=== PATIENT | female | born 1950 | race African-American/Black ===

== ENCOUNTER 2017-03-09 11:31 | Observation (INO) | payer MEDICARE, MEDICAID ==
[~2017-03-09] VITALS: Ht 167.6 cm; Wt 52.2 kg
[~2017-03-09 11:31] MED LIST: AMLO10TA80 PO; ATOR20TA65 PO; CARV6.2548 PO; CETI10TA6 PO; FERR-43 PO; FERR-63 PO; FURO40TA5 PO; METH5TAB68 PO; MSCON30 PO; POTA20TA82 PO; SILD20TA PO; SPIR25TA4 PO; WARF3TAB27 PO; WARF5TAB73 PO
[2017-03-09] MEDS ORDERED: IOHEXOL-300 100 ML BOTTLE ONE (11:34)
[2017-03-09] MEDS ORDERED: SODIUM CHLORIDE 0.9% 10ML VIAL ONE (11:34)
[2017-03-09] MEDS ORDERED: PANTOPRAZOLE SODIUM 40 MG/VIAL IV ONE (12:30)
[2017-03-09 13:13] LABS: BASOPHILS % 0.7 % (0.0-2.0); EOSINOPHILS % 0.1 % (0.0-5.0); HEMATOCRIT. 36.9 % (36.0-48.0); LYMPHOCYTES % 8.4 % (20.0-50.0); MEAN CORPUSCULAR HGB CONC 32.5 g/dL (31.0-37.0); MEAN CORPUSCULAR VOLUME 95.4 fL (81.0-99.0); MEAN PLATELET VOLUME 7.4 fl (7.4-10.4); MONOCYTES % 4.3 % (2.0-8.0); NEUTROPHILS % 86.5 % (40.0-76.0); PLATELET 160 x1000/uL (130-400); RED BLOOD CELL COUNT 3.87 mill/uL (4.2-5.4); RED CELL DISTRIBUTION WIDTH 26.2 % (11.6-14.6); WHITE BLOOD COUNT 16.6 x1000/uL (4.5-11.0)
[2017-03-09 13:18] LABS: INR 2.7
[2017-03-09 13:20] LABS: ADD RBC MORPHOLOGY YES; DIFFERENTIAL COMMENT 1
[2017-03-09 13:21] LABS: ALBUMIN 3.9 g/dL (3.4-5.0); ANION GAP 15; CALCIUM 9.8 mg/dL (8.5-10.1); CARBON DIOXIDE 21 mEq/L (21-32); CHLORIDE 108 mEq/L (98-107); INDEX HEMOLYSI 1 (1-3); INDEX ICTERIC 1 (1-4); INDEX LIPEMIC 1 (1-3); LIPASE 208 IU/L (73-393); UREA NITROGEN BLOOD 36 mg/dL (7-21)
[2017-03-09 13:25] LABS: ALANINE AMINOTRANSFERASE 20 IU/L (13-61); eGFR 54 mL/min (>60)
[2017-03-09 13:49] LABS: ANISOCYTOSIS 2+; PLATELET ESTIMATE NORMAL
[2017-03-09 14:30] LABS: CLARITY URINE CLEAR (CLEAR); COLOR URINE YELLOW (YELLOW); GLUCOSE URINE NEGATIVE (NEGATIVE); KETONES URINE NEGATIVE (NEGATIVE); LEUKOCYTE ESTERASE URINE NEGATIVE (NEGATIVE); NITRITE URINE NEGATIVE (NEGATIVE); OCCULT BLOOD URINE TRACE (NEGATIVE); PROTEIN URINE TRACE (NEGATIVE); SPECIFIC GRAVITY URINE 1.014 (1.005-1.030); UROBILINOGEN URINE 0.2 E.U./dL (0.2-1.0)
[2017-03-09] MEDS ORDERED: ONDANSETRON HCL 4MG/2ML VIAL IV ONE ×2 (14:30→18:30)
[2017-03-09] MEDS ORDERED: MORPHINE SULFATE 4 MG/ML CPJ (NOT FOR IM USE) IV ONE ×2 (14:30→18:30)
[2017-03-09 14:47] LABS: RBC URINE 0-2 /hpf (0-2); SQUAMOUS EPITHELIAL CELL URINE RARE /lpf (RARE/1+); WBC URINE NONE SEEN /hpf (0-2)
[2017-03-09 14:48] LABS: HYALINE CASTS URINE 0-5 /lpf
[2017-03-09 14:49] LABS: BACTERIA URINE TRACE
[2017-03-09 20:00] VITALS: BP 114/66
[2017-03-09 22:00] VITALS: BP 114/66
[2017-03-09 22:28] VITALS: BP 114/66
[2017-03-10] VITALS: BP 112/66
[2017-03-10] MEDS ORDERED: ATROVASTATIN (01:21)
[2017-03-10] MEDS: MORPHINE SULFATE 30MG TABLET SR PO PRN ×3 (03:01→22:54)
[2017-03-10 04:00] VITALS: BP 118/64
[2017-03-10 05:58] LABS: INR 2.5; PROTHROMBIN TIME 25.7 sec
[2017-03-10] MEDS ORDERED: FERROUS SULFATE 325MG TABLET PO SCH (06:00)
[2017-03-10 06:21] LABS: HEMOGLOBIN 11.8 g/dL (12.0-16.0); MEAN CORPUSCULAR HEMOGLOBIN 31.7 pg (28.0-32.0); MEAN CORPUSCULAR HGB CONC 32.8 g/dL (31.0-37.0); MEAN CORPUSCULAR VOLUME 96.5 fL (81.0-99.0); PLATELET 160 x1000/uL (130-400); RED BLOOD CELL COUNT 3.73 mill/uL (4.2-5.4); RED CELL DISTRIBUTION WIDTH 25.7 % (11.6-14.6); WHITE BLOOD COUNT 13.9 x1000/uL (4.5-11.0)
[2017-03-10 07:02] LABS: ALBUMIN 3.9 g/dL (3.4-5.0)
[2017-03-10 07:08] LABS: BILIRUBIN DIRECT 0.3 mg/dL (0.0-0.2)
[2017-03-10] MEDS ORDERED: MORPHINE SULFATE 30MG TABLET SR PO SCH (09:00)
[2017-03-10] MEDS: AMLODIPINE 10MG TABLET PO SCH (09:00)
[2017-03-10] MEDS: CARVEDILOL 6.25 MG TABLET PO SCH ×3 (09:00→22:04)
[2017-03-10] MEDS: ATORVASTATIN CALCIUM 20MG TABLET PO SCH (09:07)
[2017-03-10] MEDS: METHIMAZOLE 5MG TABLET PO SCH (09:08)
[2017-03-10] MEDS: FERROUS SULFATE 325MG TABLET PO SCH (09:08)
[2017-03-10] MEDS: ONDANSETRON HCL 4MG/2ML VIAL IV PRN ×2 (09:35→22:12)
[2017-03-10 12:00] VITALS: BP 100/59
[2017-03-10] MEDS: SILDENAFIL CITRATE 20MG TABLET PO SCH ×2 (14:24→21:48)
[2017-03-10 16:00] VITALS: BP 101/52
[2017-03-10 20:00] VITALS: BP 101/50
[2017-03-10] MEDS ORDERED: WARFARIN SODIUM 5MG TABLET PO SCH (21:00)
[2017-03-11] VITALS: BP 100/58
[2017-03-11 04:00] VITALS: BP 99/64
[2017-03-11 05:42] LABS: BASOPHILS % 0.5 % (0.0-2.0); EOSINOPHILS % 1.4 % (0.0-5.0); HEMATOCRIT. 33.9 % (36.0-48.0); HEMOGLOBIN. 11.2 g/dL (12.0-16.0); LYMPHOCYTES % 19.5 % (20.0-50.0); MEAN CORPUSCULAR HEMOGLOBIN 31.7 pg (28.0-32.0); MEAN CORPUSCULAR HGB CONC 32.9 g/dL (31.0-37.0); MEAN CORPUSCULAR VOLUME 96.4 fL (81.0-99.0); MEAN PLATELET VOLUME 8.4 fl (7.4-10.4); MONOCYTES % 5.1 % (2.0-8.0); NEUTROPHILS % 73.5 % (40.0-76.0); PLATELET 144 x1000/uL (130-400); RED BLOOD CELL COUNT 3.52 mill/uL (4.2-5.4); RED CELL DISTRIBUTION WIDTH 24.6 % (11.6-14.6); WHITE BLOOD COUNT 10.1 x1000/uL (4.5-11.0)
[2017-03-11 05:55] LABS: DIFFERENTIAL COMMENT 1
[2017-03-11 05:56] LABS: ADD RBC MORPHOLOGY YES
[2017-03-11] MEDS: SILDENAFIL CITRATE 20MG TABLET PO SCH ×2 (06:00→13:56)
[2017-03-11 06:29] LABS: CALCIUM 8.8 mg/dL (8.5-10.1)
[2017-03-11 08:00] VITALS: BP 103/58
[2017-03-11] MEDS: AMLODIPINE 10MG TABLET PO SCH (09:00)
[2017-03-11] MEDS: METHIMAZOLE 5MG TABLET PO SCH (09:09)
[2017-03-11] MEDS: ATORVASTATIN CALCIUM 20MG TABLET PO SCH (09:09)
[2017-03-11] MEDS: ONDANSETRON HCL 4MG/2ML VIAL IV PRN (09:09)
[2017-03-11] MEDS: FERROUS SULFATE 325MG TABLET PO SCH (09:09)
[2017-03-11 10:34] LABS: ANISOCYTOSIS 1+; PLATELET ESTIMATE NORMAL
[2017-03-11 12:00] VITALS: BP 103/57
[2017-03-11] MEDS ORDERED: SODIUM CHLORIDE 0.9% 1,000 ML IV NR (13:45)
[2017-03-11] MEDS ORDERED: SODIUM CHLORIDE 0.9% 250 ML IV NR (14:00)
[2017-03-11 16:00] VITALS: BP 94/48
[2017-03-11 16:45] LABS: INR 2.3; PROTHROMBIN TIME 23.8 sec
[2017-03-11] MEDS ORDERED: WARFARIN SODIUM 5MG TABLET PO SCH (18:00)
== END 2017-03-11 18:30 | disposition home or self-care (01) ==
LOC: ER 11:39 → INTOOBSV 16:17 → 6WST 16:17
PROVIDERS: ADMIT Specialist; ATTEND Specialist
DX: R11.2 Nausea with vomiting, unspecified (principal); R10.9 Unspecified abdominal pain; K92.1 Melena; R19.7 Diarrhea, unspecified; I48.0 Paroxysmal atrial fibrillation; J44.9 Chronic obstructive pulmonary disease, unspecified; I27.2 Other secondary pulmonary hypertension; I50.32 Chronic diastolic (congestive) heart failure; I10 Essential (primary) hypertension; N28.9 Disorder of kidney and ureter, unspecified; E05.90 Thyrotoxicosis, unspecified without thyrotoxic crisis or storm; D50.9 Iron deficiency anemia, unspecified; Z98.890 Other specified postprocedural states; Z90.49 Acquired absence of other specified parts of digestive tract; Z95.2 Presence of prosthetic heart valve; Z79.01 Long term (current) use of anticoagulants
CPT/HCPCS: 36415; 74177; 80048; 80053; 80076; 81001; 83690; 85025; 85027; 85610; 86850; 86870; 86900; 86901; 86920; 96374; 96375; 96376; 99285; A4216; C9113; G0378; J2270; J2405; J7050; Q9967

== ENCOUNTER → 2017-05-23 | Outpatient (CLI) | payer MEDICARE, MEDICAID ==
[~2017-05-23] MED LIST changes: -FERR-63 PO; -WARF3TAB27 PO; -WARF5TAB73 PO
== END | disposition home or self-care (01) ==
LOC: RAD 15:21
PROVIDERS: ATTEND Specialist
DX: J90 Pleural effusion, not elsewhere classified (principal); J44.9 Chronic obstructive pulmonary disease, unspecified; Z95.2 Presence of prosthetic heart valve
CPT/HCPCS: 71020

== ENCOUNTER 2017-05-30 10:43 | Inpatient (IN) | payer MEDICARE, MEDICAID ==
[~2017-05-30] VITALS: Ht 167.6 cm; Wt 53.2 kg
[2017-05-30] MEDS ORDERED: ALBUTEROL (0.083%) 2.5MG/3ML NEB HHN STA (11:01)
[2017-05-30] MEDS ORDERED: IPRATROPIUM BROMIDE (0.02%) 0.5MG/2.5ML NEB HHN STA (11:01)
[2017-05-30 11:21] LABS: BASOPHILS % 0.6 % (0.0-2.0); EOSINOPHILS % 1.7 % (0.0-5.0); HEMATOCRIT. 32.6 % (36.0-48.0); HEMOGLOBIN. 10.5 g/dL (12.0-16.0); LYMPHOCYTES % 7.3 % (20.0-50.0); MEAN CORPUSCULAR HEMOGLOBIN 30.1 pg (28.0-32.0); MEAN CORPUSCULAR VOLUME 93.2 fL (81.0-99.0); MEAN PLATELET VOLUME 7.3 fl (7.4-10.4); MONOCYTES % 3.5 % (2.0-8.0); NEUTROPHILS % 86.9 % (40.0-76.0); PLATELET 236 x1000/uL (130-400); RED CELL DISTRIBUTION WIDTH 16.9 % (11.6-14.6)
[2017-05-30 11:31] LABS: CARBON DIOXIDE 14 mEq/L (21-32); CHLORIDE 108 mEq/L (98-107); PROTHROMBIN TIME 85.2 sec
[2017-05-30 11:32] LABS: BG BASE EXCESS -10.5 mmol/L (-2.0-2.0); BG CARBOXYHEMOGLOBIN 0.6 % (0.5-1.5); BG DEOXYHEMOGLOBIN 27.1 % (0.0-5.0); BG FRACTION INSPIRED OXYGEN 30; BG METHEMOGLOBIN 0.2 % (0.0-1.5); BG OXYGEN SATURATION 72.7 % (92.0-98.5); BG OXYHEMOGLOBIN 72.1 % (94.0-97.0); BG PCO2 23.3 mmHg (35.0-45.0); BG PH 7.366 (7.350-7.450); BG PO2 44.6 mmHg (75.0-100.0); BG SAMPLE SITE RIGHT BRACHIAL; BG TOTAL HEMOGLOBIN 11.8 g/dL (12.0-18.0); BG VENT MODE NASAL CANNULA
[2017-05-30 11:35] LABS: INR 8.2
[2017-05-30 11:38] LABS: TROPONIN I 0.04 ng/mL (0.00-0.04)
[2017-05-30] MEDS ORDERED: FUROSEMIDE 40MG/4ML VIAL IVP NR (14:00)
[2017-05-30] MEDS ORDERED: PHYTONADIONE 10MG/ML AMP SUBCUT NR (14:00)
[2017-05-30] MEDS ORDERED: ONDANSETRON HCL 4MG/2ML VIAL IV PRN (14:00)
[2017-05-30] MEDS ORDERED: IPRATROPIUM/ALBUTEROL 0.5-3(2.5)MG/3ML NEB INH PRN (14:00)
[2017-05-30] MEDS ORDERED: DOCUSATE SODIUM 100MG CAPSULE PO PRN (14:00)
[2017-05-30 14:06] LABS: BG CARBOXYHEMOGLOBIN 0.6 % (0.5-1.5); BG DEOXYHEMOGLOBIN 0.2 % (0.0-5.0); BG FRACTION INSPIRED OXYGEN 100; BG HCO3 ACT 12.2 mmol/L (22.0-26.0); BG METHEMOGLOBIN 0.4 % (0.0-1.5); BG OXYGEN SATURATION 99.8 % (92.0-98.5); BG OXYHEMOGLOBIN 98.8 % (94.0-97.0); BG PCO2 23.5 mmHg (35.0-45.0); BG PH 7.332 (7.350-7.450); BG PO2 313.5 mmHg (75.0-100.0); BG SAMPLE SITE RIGHT BRACHIAL; BG TOTAL HEMOGLOBIN 11.4 g/dL (12.0-18.0); BG VENT MODE MASK - BIPAP; BG VENT RATE 14 set
[2017-05-30 15:09] LABS: TOTAL IRON BINDING CAPACITY 232 ug/dL (250-450)
[2017-05-30] MEDS: FUROSEMIDE 40MG/4ML VIAL IV SCH (17:00)
[2017-05-30 17:10] VITALS: BP 138/77
[2017-05-30 17:12] VITALS: BP 138/77
[2017-05-30 17:14] LABS: *AMPHETAMINES SCREEN URINE NEGATIVE (NEGATIVE); *BARBITURATES SCREEN URINE NEGATIVE (NEGATIVE); *BENZODIAZEPINES SCREEN URINE NEGATIVE (NEGATIVE); *COCAINE SCREEN URINE NEGATIVE (NEGATIVE); CANNABINOID URINE SCREEN NEGATIVE (NEGATIVE); METHADONE URINE SCREEN NEGATIVE (NEGATIVE); OPIATES URINE SCREEN PRESUMTIVE POSITIVE (NEGATIVE); PHENCYCLIDINE URINE SCREEN NEGATIVE (NEGATIVE)
[2017-05-30] MEDS: METHYLPREDNISOLONE SOD SUCC 125 MG/2 ML VIAL IV SCH (17:42)
[2017-05-30] MEDS: CARVEDILOL 6.25 MG TABLET PO SCH (17:42)
[2017-05-30 18:00] VITALS: BP 151/80
[2017-05-30 19:01] LABS: HEMATOCRIT 34.7 % (36.0-48.0); HEMOGLOBIN 11.1 g/dL (12.0-16.0)
[2017-05-30 20:00] VITALS: BP 117/71
[2017-05-30] MEDS: AMLODIPINE 5MG TABLET PO SCH (20:31)
[2017-05-30] MEDS: ATORVASTATIN CALCIUM 20MG TABLET PO SCH (20:31)
[2017-05-30] MEDS: SILDENAFIL CITRATE 20MG TABLET PO SCH (20:32)
[2017-05-30] MEDS: IPRATROPIUM/ALBUTEROL 0.5-3(2.5)MG/3ML NEB INH SCH (20:51)
[2017-05-30] MEDS: ZOLPIDEM TARTRATE 5MG TABLET PO PRN (21:46)
[2017-05-30 22:00] VITALS: BP 116/68
[2017-05-31] VITALS (11 sets, daily range): BP systolic 106–125; BP diastolic 55–73
[2017-05-31] MEDS: METHYLPREDNISOLONE SOD SUCC 125 MG/2 ML VIAL IV SCH ×3 (02:02→17:13)
[2017-05-31] MEDS: IPRATROPIUM/ALBUTEROL 0.5-3(2.5)MG/3ML NEB INH SCH ×4 (02:10→21:09)
[2017-05-31] MEDS: OMEPRAZOLE 20MG CAPSULE EXTENDED RELEASE PO SCH (06:06)
[2017-05-31] MEDS: SILDENAFIL CITRATE 20MG TABLET PO SCH ×3 (06:06→21:10)
[2017-05-31 06:17] LABS: INR 3.6; PROTHROMBIN TIME 37.7 sec
[2017-05-31 06:45] LABS: HEMATOCRIT. 31.3 % (36.0-48.0); HEMOGLOBIN. 10.2 g/dL (12.0-16.0); MEAN CORPUSCULAR HEMOGLOBIN 30.3 pg (28.0-32.0); MEAN CORPUSCULAR VOLUME 92.9 fL (81.0-99.0); MEAN PLATELET VOLUME 8.3 fl (7.4-10.4); PLATELET 196 x1000/uL (130-400); RED BLOOD CELL COUNT 3.36 mill/uL (4.2-5.4); RED CELL DISTRIBUTION WIDTH 16.3 % (11.6-14.6)
[2017-05-31 07:00] LABS: AMMONIA 41 uMol/L (<32)
[2017-05-31 07:43] LABS: PHOSPHORUS 4.3 mg/dL (2.5-4.9)
[2017-05-31] MEDS: FUROSEMIDE 40MG/4ML VIAL IV SCH (08:27)
[2017-05-31] MEDS: CARVEDILOL 6.25 MG TABLET PO SCH ×2 (08:28→17:00)
[2017-05-31] MEDS: METHIMAZOLE 5MG TABLET PO SCH (08:28)
[2017-05-31] MEDS: AMLODIPINE 5MG TABLET PO SCH ×2 (08:28→21:09)
[2017-05-31] MEDS ORDERED: LACTULOSE 20G/30ML UDC PO SCH (12:00)
[2017-05-31] MEDS: FERROUS SULFATE 325MG TABLET PO SCH ×2 (12:24→17:13)
[2017-05-31] MEDS ORDERED: LACTULOSE 20G/30ML UDC PO PRN (13:30)
[2017-05-31 20:31] LABS: PLATELET ESTIMATE NORMAL
[2017-05-31] MEDS: ATORVASTATIN CALCIUM 20MG TABLET PO SCH (21:10)
[2017-06-01] VITALS (18 sets, daily range): BP systolic 100–131; BP diastolic 49–72
[2017-06-01] MEDS: IPRATROPIUM/ALBUTEROL 0.5-3(2.5)MG/3ML NEB INH SCH ×4 (02:12→20:04)
[2017-06-01] MEDS: METHYLPREDNISOLONE SOD SUCC 125 MG/2 ML VIAL IV SCH ×2 (02:30→09:24)
[2017-06-01] MEDS: OMEPRAZOLE 20MG CAPSULE EXTENDED RELEASE PO SCH (05:58)
[2017-06-01] MEDS: SILDENAFIL CITRATE 20MG TABLET PO SCH ×3 (06:00→21:26)
[2017-06-01 06:39] LABS: INR 1.8; PROTHROMBIN TIME 18.4 sec
[2017-06-01 06:43] LABS: HEMATOCRIT. 32.2 % (36.0-48.0); HEMOGLOBIN. 10.4 g/dL (12.0-16.0); MEAN CORPUSCULAR HEMOGLOBIN 29.8 pg (28.0-32.0); MEAN CORPUSCULAR VOLUME 92.1 fL (81.0-99.0); MEAN PLATELET VOLUME 7.5 fl (7.4-10.4); PLATELET 211 x1000/uL (130-400); RED CELL DISTRIBUTION WIDTH 16.4 % (11.6-14.6)
[2017-06-01] MEDS: FERROUS SULFATE 325MG TABLET PO SCH ×3 (09:21→17:14)
[2017-06-01] MEDS: METHIMAZOLE 5MG TABLET PO SCH (09:21)
[2017-06-01] MEDS: FUROSEMIDE 40MG/4ML VIAL IV SCH (09:21)
[2017-06-01] MEDS: AMLODIPINE 5MG TABLET PO SCH ×2 (09:22→20:01)
[2017-06-01] MEDS: CARVEDILOL 6.25 MG TABLET PO SCH ×2 (09:22→17:14)
[2017-06-01 15:46] LABS: PLATELET ESTIMATE NORMAL
[2017-06-01] MEDS: METHYLPREDNISOLONE SOD SUCC 40 MG/ML VIAL IV SCH (17:12)
[2017-06-01] MEDS: LORAZEPAM 0.5MG TABLET PO PRN (17:14)
[2017-06-01] MEDS: ATORVASTATIN CALCIUM 20MG TABLET PO SCH (20:01)
[2017-06-01] MEDS: ZOLPIDEM TARTRATE 5MG TABLET PO PRN (22:16)
[2017-06-02] VITALS (11 sets, daily range): BP systolic 97–132; BP diastolic 52–92
[2017-06-02] MEDS: METHYLPREDNISOLONE SOD SUCC 40 MG/ML VIAL IV SCH ×3 (01:09→20:42)
[2017-06-02] MEDS: IPRATROPIUM/ALBUTEROL 0.5-3(2.5)MG/3ML NEB INH SCH ×3 (02:20→21:13)
[2017-06-02] MEDS: SILDENAFIL CITRATE 20MG TABLET PO SCH ×3 (05:41→21:01)
[2017-06-02] MEDS: FERROUS SULFATE 325MG TABLET PO SCH ×3 (07:02→18:20)
[2017-06-02 07:20] LABS: INR 1.4; PROTHROMBIN TIME 14.7 sec
[2017-06-02 09:06] LABS: FOLICLE STIMULATING HORMONE 15.1 mIU/mL (.); PROLACTIN 13.9 ng/mL (4.8-23.3)
[2017-06-02] MEDS: FAMOTIDINE 20MG TABLET PO SCH (10:00)
[2017-06-02] MEDS: FUROSEMIDE 40MG/4ML VIAL IV SCH (10:01)
[2017-06-02] MEDS: METHIMAZOLE 5MG TABLET PO SCH (10:01)
[2017-06-02] MEDS: AMLODIPINE 5MG TABLET PO SCH ×2 (10:02→20:50)
[2017-06-02] MEDS: CARVEDILOL 6.25 MG TABLET PO SCH ×2 (10:02→18:21)
[2017-06-02 13:07] LABS: A/G RATIO 0.9 (0.7-1.7); ALBUMIN 3.4 g/dL (2.9-4.4); ALPHA-1-GLOBULIN 0.4 g/dL (0.0-0.4); ALPHA-2-GLOBULIN 0.7 g/dL (0.4-1.0); BETA GLOBULIN 1.3 g/dL (0.7-1.3); GAMMA GLOBULINS 1.4 g/dL (0.4-1.8); GLOBULIN TOTAL 3.8 g/dL (2.2-3.9); M-SPIKE Not Observed g/dL (Not Observed); TOTAL PROTEIN SERUM 7.2 g/dL (6.0-8.5)
[2017-06-02] MEDS: ATORVASTATIN CALCIUM 20MG TABLET PO SCH (20:41)
[2017-06-02] MEDS: ZOLPIDEM TARTRATE 5MG TABLET PO PRN (20:56)
[2017-06-02] MEDS: LORAZEPAM 0.5MG TABLET PO PRN (23:20)
[2017-06-03] VITALS (13 sets, daily range): BP systolic 99–139; BP diastolic 49–88
[2017-06-03] MEDS: IPRATROPIUM/ALBUTEROL 0.5-3(2.5)MG/3ML NEB INH SCH ×4 (01:59→20:12)
[2017-06-03] MEDS: FERROUS SULFATE 325MG TABLET PO SCH ×3 (06:18→16:57)
[2017-06-03] MEDS: SILDENAFIL CITRATE 20MG TABLET PO SCH ×3 (06:18→21:03)
[2017-06-03 06:30] LABS: INR 1.3; PROTHROMBIN TIME 13.4 sec
[2017-06-03 06:40] LABS: HEMATOCRIT. 32.7 % (36.0-48.0); HEMOGLOBIN. 10.6 g/dL (12.0-16.0); MEAN CORPUSCULAR HEMOGLOBIN 29.7 pg (28.0-32.0); MEAN CORPUSCULAR VOLUME 91.9 fL (81.0-99.0); MEAN PLATELET VOLUME 8.1 fl (7.4-10.4); PLATELET 222 x1000/uL (130-400); RED BLOOD CELL COUNT 3.55 mill/uL (4.2-5.4); RED CELL DISTRIBUTION WIDTH 17.1 % (11.6-14.6)
[2017-06-03] MEDS: METHIMAZOLE 5MG TABLET PO SCH (08:11)
[2017-06-03] MEDS: METHYLPREDNISOLONE SOD SUCC 40 MG/ML VIAL IV SCH ×2 (08:11→20:55)
[2017-06-03] MEDS: AMLODIPINE 5MG TABLET PO SCH ×2 (08:12→20:55)
[2017-06-03] MEDS: FAMOTIDINE 20MG TABLET PO SCH (08:12)
[2017-06-03] MEDS: CARVEDILOL 6.25 MG TABLET PO SCH ×2 (08:12→16:57)
[2017-06-03] MEDS: LORAZEPAM 0.5MG TABLET PO PRN ×3 (08:21→22:19)
[2017-06-03 16:15] LABS: PLATELET ESTIMATE NORMAL
[2017-06-03] MEDS ORDERED: WARFARIN SODIUM 7.5MG TABLET PO SCH (18:00)
[2017-06-03] MEDS: ATORVASTATIN CALCIUM 20MG TABLET PO SCH (20:55)
[2017-06-03] MEDS: ZOLPIDEM TARTRATE 5MG TABLET PO PRN ×2 (20:59→21:03)
[2017-06-04] VITALS (14 sets, daily range): BP systolic 106–141; BP diastolic 48–91
[2017-06-04] MEDS: IPRATROPIUM/ALBUTEROL 0.5-3(2.5)MG/3ML NEB INH SCH ×4 (01:48→20:33)
[2017-06-04] MEDS: SILDENAFIL CITRATE 20MG TABLET PO SCH ×3 (06:33→21:42)
[2017-06-04 07:07] LABS: HEMATOCRIT. 35.1 % (36.0-48.0); HEMOGLOBIN. 11.5 g/dL (12.0-16.0); MEAN CORPUSCULAR HEMOGLOBIN 29.9 pg (28.0-32.0); MEAN CORPUSCULAR VOLUME 90.9 fL (81.0-99.0); MEAN PLATELET VOLUME 7.6 fl (7.4-10.4); PLATELET 227 x1000/uL (130-400); RED BLOOD CELL COUNT 3.86 mill/uL (4.2-5.4)
[2017-06-04 07:46] LABS: INR 1.4; PROTHROMBIN TIME 14.4 sec
[2017-06-04] MEDS: FERROUS SULFATE 325MG TABLET PO SCH ×2 (09:35→18:30)
[2017-06-04] MEDS: METHYLPREDNISOLONE SOD SUCC 40 MG/ML VIAL IV SCH ×2 (09:35→21:43)
[2017-06-04] MEDS: CARVEDILOL 6.25 MG TABLET PO SCH ×2 (09:36→18:31)
[2017-06-04] MEDS: METHIMAZOLE 5MG TABLET PO SCH (09:37)
[2017-06-04] MEDS: FAMOTIDINE 20MG TABLET PO SCH (09:37)
[2017-06-04] MEDS: AMLODIPINE 5MG TABLET PO SCH ×2 (09:41→21:42)
[2017-06-04 11:26] LABS: PLATELET ESTIMATE NORMAL
[2017-06-04] MEDS: LORAZEPAM 0.5MG TABLET PO PRN (15:31)
[2017-06-04] MEDS ORDERED: WARFARIN SODIUM 7.5MG TABLET PO NR (18:00)
[2017-06-04] MEDS: ATORVASTATIN CALCIUM 20MG TABLET PO SCH (21:42)
[2017-06-05] VITALS (11 sets, daily range): BP systolic 113–152; BP diastolic 42–77
[2017-06-05] MEDS: IPRATROPIUM/ALBUTEROL 0.5-3(2.5)MG/3ML NEB INH SCH ×4 (02:21→20:51)
[2017-06-05] MEDS: SILDENAFIL CITRATE 20MG TABLET PO SCH ×3 (05:38→21:20)
[2017-06-05] MEDS: FERROUS SULFATE 325MG TABLET PO SCH ×3 (06:47→17:40)
[2017-06-05 07:01] LABS: INR 1.8; PROTHROMBIN TIME 18.3 sec
[2017-06-05] MEDS: METHYLPREDNISOLONE SOD SUCC 40 MG/ML VIAL IV SCH (09:35)
[2017-06-05] MEDS: METHIMAZOLE 5MG TABLET PO SCH (09:35)
[2017-06-05] MEDS: FAMOTIDINE 20MG TABLET PO SCH (09:36)
[2017-06-05] MEDS: AMLODIPINE 5MG TABLET PO SCH ×2 (09:36→21:20)
[2017-06-05] MEDS: CARVEDILOL 6.25 MG TABLET PO SCH ×2 (09:36→17:40)
[2017-06-05] MEDS ORDERED: HYDROCODONE/ACETAMINOPHEN 5/325MG TABLET PO PRN (10:00)
[2017-06-05] MEDS ORDERED: ACETAMINOPHEN 325MG TABLET PO PRN (10:00)
[2017-06-05] MEDS: TRAMADOL 50MG TABLET PO PRN (10:02)
[2017-06-05] MEDS ORDERED: WARFARIN SODIUM 3MG TABLET PO SCH (18:00)
[2017-06-05] MEDS: ATORVASTATIN CALCIUM 20MG TABLET PO SCH (21:20)
[2017-06-05] MEDS: LORAZEPAM 0.5MG TABLET PO PRN (21:21)
[2017-06-06] VITALS (9 sets, daily range): BP systolic 105–147; BP diastolic 55–83
[2017-06-06] MEDS: IPRATROPIUM/ALBUTEROL 0.5-3(2.5)MG/3ML NEB INH SCH ×3 (02:55→13:42)
[2017-06-06 06:10] LABS: INR 2.7; PROTHROMBIN TIME 28.3 sec
[2017-06-06] MEDS: TRAMADOL 50MG TABLET PO PRN (06:26)
[2017-06-06] MEDS: SILDENAFIL CITRATE 20MG TABLET PO SCH ×2 (06:26→13:29)
[2017-06-06] MEDS: FERROUS SULFATE 325MG TABLET PO SCH ×2 (08:12→11:59)
[2017-06-06] MEDS: METHIMAZOLE 5MG TABLET PO SCH (08:13)
[2017-06-06] MEDS: CARVEDILOL 6.25 MG TABLET PO SCH (08:13)
[2017-06-06] MEDS: FAMOTIDINE 20MG TABLET PO SCH (08:13)
[2017-06-06] MEDS: AMLODIPINE 5MG TABLET PO SCH (08:14)
[2017-06-06] MEDS ORDERED: PREDNISONE 20MG TABLET PO SCH (09:00)
== END 2017-06-06 15:31 | DRG 291 ==
LOC: ER 10:43 → SUPCPDRO 13:14 → 3WST 13:26 → EDBEDREQTM 13:29 → EDBEDREQ 13:29 → ENRESERV 16:26 → 3WST 06-04 15:47
PROVIDERS: ADMIT Specialist; ATTEND Specialist
PROC: 0W993ZZ Drainage of Right Pleural Cavity, Percutaneous Approach (ICD-10-PCS; principal; 2017-05-30)
PROC: 5A09457 Assistance with Respiratory Ventilation, 24-96 Consecutive Hours, Continuous Positive Airway Pressure (ICD-10-PCS; 2017-06-02)
DX: I13.0 Hypertensive heart and chronic kidney disease with heart failure and stage 1 through stage 4 chronic kidney disease, or unspecified chronic kidney disease (principal); J96.20 Acute and chronic respiratory failure, unspecified whether with hypoxia or hypercapnia; I50.31 Acute diastolic (congestive) heart failure; J44.1 Chronic obstructive pulmonary disease with (acute) exacerbation; E46 Unspecified protein-calorie malnutrition; E87.1 Hypo-osmolality and hyponatremia; I47.2 Ventricular tachycardia; N17.9 Acute kidney failure, unspecified; D68.9 Coagulation defect, unspecified; J90 Pleural effusion, not elsewhere classified; D25.9 Leiomyoma of uterus, unspecified; D50.9 Iron deficiency anemia, unspecified; D72.829 Elevated white blood cell count, unspecified; E03.9 Hypothyroidism, unspecified; E05.90 Thyrotoxicosis, unspecified without thyrotoxic crisis or storm; E78.00 Pure hypercholesterolemia, unspecified; E78.5 Hyperlipidemia, unspecified; E87.5 Hyperkalemia; F17.210 Nicotine dependence, cigarettes, uncomplicated; I08.0 Rheumatic disorders of both mitral and aortic valves; I27.2 Other secondary pulmonary hypertension; I27.81 Cor pulmonale (chronic); I48.0 Paroxysmal atrial fibrillation; J84.10 Pulmonary fibrosis, unspecified; N18.3 Chronic kidney disease, stage 3 (moderate); N28.1 Cyst of kidney, acquired; T45.515A Adverse effect of anticoagulants, initial encounter; Y92.89 Other specified places as the place of occurrence of the external cause; Z79.01 Long term (current) use of anticoagulants; Z82.5 Family history of asthma and other chronic lower respiratory diseases; Z87.01 Personal history of pneumonia (recurrent); Z95.2 Presence of prosthetic heart valve; Z98.41 Cataract extraction status, right eye; Z88.6 Allergy status to analgesic agent; Z88.8 Allergy status to other drugs, medicaments and biological substances; Z79.899 Other long term (current) drug therapy; R73.9 Hyperglycemia, unspecified; R26.9 Unspecified abnormalities of gait and mobility
CPT/HCPCS: 32555; 36415; 36600; 71010; 80048; 80053; 80076; 80305; 82140; 82375; 82805; 83001; 83002; 83540; 83550; 83615; 83735; 83880; 84100; 84146; 84155; 84157; 84165; 84439; 84443; 84481; 84484; 84550; 85014; 85018; 85025; 85610; 87070; 87075; 87102; 87116; 87205; 88108; 88312; 89050; 93005; 93306; 93970; 94640; 94644; 94660; 96372; 96374; 97116; 97162; 97167; 97530; 97535; 99291; J1940; J2405; J2920; J2930; J3430; J7512; J7611; J7620

== ENCOUNTER 2017-06-06 15:35 | Inpatient (IN) | payer MEDICARE, MEDICAID ==
[~2017-06-06] VITALS: Ht 165.1 cm; Wt 53.1 kg
[2017-06-06 14:30] VITALS: BP 120/48
[2017-06-06 16:00] VITALS: BP 120/48
[2017-06-06 16:14] VITALS: BP 120/48
[2017-06-06] MEDS ORDERED: DOCUSATE SODIUM 100MG CAPSULE PO PRN (16:30)
[2017-06-06] MEDS ORDERED: ONDANSETRON 4MG ODT PO PRN ×2 (16:30→16:45)
[2017-06-06] MEDS ORDERED: LACTULOSE 20G/30ML UDC PO PRN (16:30)
[2017-06-06] MEDS ORDERED: ACETAMINOPHEN 325MG TABLET PO PRN (16:30)
[2017-06-06] MEDS: FERROUS SULFATE 325MG TABLET PO SCH (17:00)
[2017-06-06 20:00] VITALS: BP 124/75
[2017-06-06] MEDS: CARVEDILOL 6.25 MG TABLET PO SCH (21:00)
[2017-06-06] MEDS: IPRATROPIUM/ALBUTEROL 0.5-3(2.5)MG/3ML NEB HHN SCH (21:28)
[2017-06-06] MEDS: SILDENAFIL CITRATE 20MG TABLET PO SCH (22:10)
[2017-06-06] MEDS: ATORVASTATIN CALCIUM 20MG TABLET PO SCH (22:10)
[2017-06-06] MEDS: LORAZEPAM 0.5MG TABLET PO PRN (22:11)
[2017-06-06] MEDS: AMLODIPINE 5MG TABLET PO SCH (22:11)
[2017-06-07] MEDS: IPRATROPIUM/ALBUTEROL 0.5-3(2.5)MG/3ML NEB HHN SCH ×4 (01:52→19:49)
[2017-06-07] MEDS: IPRATROPIUM/ALBUTEROL 0.5-3(2.5)MG/3ML NEB HHN PRN (02:09)
[2017-06-07] MEDS: ONDANSETRON HCL 4MG/2ML VIAL IV PRN (05:49)
[2017-06-07 06:32] LABS: BASOPHILS % 0.1 % (0.0-2.0); EOSINOPHILS % 0.2 % (0.0-5.0); HEMATOCRIT. 33.6 % (36.0-48.0); HEMOGLOBIN. 10.9 g/dL (12.0-16.0); LYMPHOCYTES % 8.1 % (20.0-50.0); MEAN CORPUSCULAR HEMOGLOBIN 29.6 pg (28.0-32.0); MEAN CORPUSCULAR VOLUME 91.3 fL (81.0-99.0); MEAN PLATELET VOLUME 7.8 fl (7.4-10.4); MONOCYTES % 4.6 % (2.0-8.0); PLATELET 195 x1000/uL (130-400); RED BLOOD CELL COUNT 3.68 mill/uL (4.2-5.4)
[2017-06-07 06:48] LABS: INR 2.8; PROTHROMBIN TIME 29.4 sec
[2017-06-07 07:06] LABS: CARBON DIOXIDE 24 mEq/L (21-32); CHLORIDE 103 mEq/L (98-107)
[2017-06-07] MEDS: SILDENAFIL CITRATE 20MG TABLET PO SCH ×3 (07:25→23:24)
[2017-06-07 07:26] LABS: PREALBUMIN 38.7 mg/dL (20.0-40.0)
[2017-06-07 08:00] VITALS: BP 118/75
[2017-06-07] MEDS: AMLODIPINE 5MG TABLET PO SCH ×2 (09:00→21:00)
[2017-06-07] MEDS: FAMOTIDINE 20MG TABLET PO SCH (09:26)
[2017-06-07] MEDS: PREDNISONE 20MG TABLET PO SCH (09:27)
[2017-06-07] MEDS: FERROUS SULFATE 325MG TABLET PO SCH ×3 (09:27→17:30)
[2017-06-07] MEDS: METHIMAZOLE 5MG TABLET PO SCH (09:27)
[2017-06-07] MEDS: CARVEDILOL 6.25 MG TABLET PO SCH ×2 (09:28→21:00)
[2017-06-07] MEDS ORDERED: WARFARIN SODIUM 3MG TABLET PO SCH (18:00)
[2017-06-07] MEDS: TRAMADOL 50MG TABLET PO PRN (19:43)
[2017-06-07] MEDS: LORAZEPAM 0.5MG TABLET PO PRN (20:40)
[2017-06-07] MEDS: ATORVASTATIN CALCIUM 20MG TABLET PO SCH (20:40)
[2017-06-07 20:46] VITALS: BP 121/82
[2017-06-08] MEDS: IPRATROPIUM/ALBUTEROL 0.5-3(2.5)MG/3ML NEB HHN SCH ×4 (00:21→21:04)
[2017-06-08 06:44] LABS: INR 2.6; PROTHROMBIN TIME 27.4 sec
[2017-06-08] MEDS: SILDENAFIL CITRATE 20MG TABLET PO SCH ×3 (06:44→22:15)
[2017-06-08 06:56] LABS: FERRITIN 375 ng/mL (10-291)
[2017-06-08 07:12] LABS: BASOPHILS % 0.2 % (0.0-2.0); EOSINOPHILS % 0.9 % (0.0-5.0); HEMATOCRIT. 35.2 % (36.0-48.0); HEMOGLOBIN. 11.4 g/dL (12.0-16.0); LYMPHOCYTES % 10.5 % (20.0-50.0); MEAN CORPUSCULAR VOLUME 92.6 fL (81.0-99.0); MEAN PLATELET VOLUME 8.1 fl (7.4-10.4); NEUTROPHILS % 84.4 % (40.0-76.0); PLATELET 222 x1000/uL (130-400); RED CELL DISTRIBUTION WIDTH 17.3 % (11.6-14.6)
[2017-06-08 07:25] LABS: PHOSPHORUS 2.7 mg/dL (2.5-4.9)
[2017-06-08 08:00] VITALS: BP 116/71
[2017-06-08 08:22] LABS: VITAMIN B12 SERUM 1477 pg/mL (211-911)
[2017-06-08 08:38] LABS: FOLIC ACID (FOLATE) SERUM > 20.00 ng/mL (>5.38)
[2017-06-08] MEDS: CARVEDILOL 6.25 MG TABLET PO SCH ×2 (09:49→20:49)
[2017-06-08] MEDS: FAMOTIDINE 20MG TABLET PO SCH (09:49)
[2017-06-08] MEDS: PREDNISONE 20MG TABLET PO SCH (09:49)
[2017-06-08] MEDS: FERROUS SULFATE 325MG TABLET PO SCH ×3 (09:49→17:51)
[2017-06-08] MEDS: METHIMAZOLE 5MG TABLET PO SCH (09:49)
[2017-06-08] MEDS: AMLODIPINE 5MG TABLET PO SCH ×2 (09:50→20:49)
[2017-06-08 12:45] VITALS: BP 109/75
[2017-06-08] MEDS: LORAZEPAM 0.5MG TABLET PO PRN (15:15)
[2017-06-08] MEDS ORDERED: WARFARIN SODIUM 3MG TABLET PO SCH (18:00)
[2017-06-08 20:00] VITALS: BP 136/76
[2017-06-08] MEDS: ATORVASTATIN CALCIUM 20MG TABLET PO SCH (20:48)
[2017-06-08] MEDS: ONDANSETRON HCL 4MG/2ML VIAL IV PRN (20:49)
[2017-06-08] MEDS: ZOLPIDEM TARTRATE 5MG TABLET PO PRN (23:58)
[2017-06-09] MEDS: IPRATROPIUM/ALBUTEROL 0.5-3(2.5)MG/3ML NEB HHN SCH ×5 (02:00→20:30)
[2017-06-09] MEDS: SILDENAFIL CITRATE 20MG TABLET PO SCH ×3 (05:48→21:00)
[2017-06-09 06:34] LABS: BASOPHILS % 0.1 % (0.0-2.0); EOSINOPHILS % 0.9 % (0.0-5.0); HEMOGLOBIN. 10.4 g/dL (12.0-16.0); LYMPHOCYTES % 11.4 % (20.0-50.0); MEAN CORPUSCULAR HEMOGLOBIN 29.9 pg (28.0-32.0); MEAN CORPUSCULAR VOLUME 92.2 fL (81.0-99.0); MEAN PLATELET VOLUME 7.5 fl (7.4-10.4); MONOCYTES % 4.5 % (2.0-8.0); NEUTROPHILS % 83.1 % (40.0-76.0); PLATELET 177 x1000/uL (130-400); RED BLOOD CELL COUNT 3.47 mill/uL (4.2-5.4); RED CELL DISTRIBUTION WIDTH 17.2 % (11.6-14.6)
[2017-06-09 08:00] VITALS: BP 112/66
[2017-06-09] MEDS: FERROUS SULFATE 325MG TABLET PO SCH ×3 (09:36→17:17)
[2017-06-09] MEDS: CARVEDILOL 6.25 MG TABLET PO SCH ×2 (09:37→20:56)
[2017-06-09] MEDS: METHIMAZOLE 5MG TABLET PO SCH (09:38)
[2017-06-09] MEDS: PREDNISONE 20MG TABLET PO SCH (09:38)
[2017-06-09] MEDS: LORAZEPAM 0.5MG TABLET PO PRN (09:38)
[2017-06-09] MEDS: AMLODIPINE 5MG TABLET PO SCH ×2 (09:38→20:56)
[2017-06-09] MEDS: FAMOTIDINE 20MG TABLET PO SCH (09:38)
[2017-06-09] MEDS ORDERED: WARFARIN SODIUM 3MG TABLET PO NR (18:00)
[2017-06-09 20:00] VITALS: BP 120/78
[2017-06-09] MEDS: ATORVASTATIN CALCIUM 20MG TABLET PO SCH (20:56)
[2017-06-10] MEDS: LORAZEPAM 0.5MG TABLET PO PRN (00:03)
[2017-06-10] MEDS: IPRATROPIUM/ALBUTEROL 0.5-3(2.5)MG/3ML NEB HHN SCH ×2 (00:24→08:53)
[2017-06-10 00:41] LABS: CLARITY URINE CLEAR (CLEAR); COLOR URINE YELLOW (YELLOW); GLUCOSE URINE NEGATIVE (NEGATIVE); KETONES URINE NEGATIVE (NEGATIVE); LEUKOCYTE ESTERASE URINE NEGATIVE (NEGATIVE); NITRITE URINE NEGATIVE (NEGATIVE); OCCULT BLOOD URINE NEGATIVE (NEGATIVE); PROTEIN URINE NEGATIVE (NEGATIVE); UROBILINOGEN URINE 0.2 E.U./dL (0.2-1.0)
[2017-06-10] MEDS: ZOLPIDEM TARTRATE 5MG TABLET PO PRN (01:29)
[2017-06-10] MEDS: IPRATROPIUM/ALBUTEROL 0.5-3(2.5)MG/3ML NEB HHN PRN (04:37)
[2017-06-10 05:10] VITALS: BP 97/65
[2017-06-10] MEDS: SILDENAFIL CITRATE 20MG TABLET PO SCH (05:10)
[2017-06-10 05:49] LABS: INR 2.8; PROTHROMBIN TIME 29.1 sec
[2017-06-10 05:54] VITALS: BP 103/64
[2017-06-10] MEDS: TRAMADOL 50MG TABLET PO PRN (06:05)
[2017-06-10 08:16] LABS: BG BASE EXCESS -1.2 mmol/L (-2.0-2.0); BG CARBOXYHEMOGLOBIN 0.8 % (0.5-1.5); BG DEOXYHEMOGLOBIN 25.2 % (0.0-5.0); BG FRACTION INSPIRED OXYGEN 36; BG HCO3 ACT 20.3 mmol/L (22.0-26.0); BG METHEMOGLOBIN 0.2 % (0.0-1.5); BG OXYGEN SATURATION 74.5 % (92.0-98.5); BG OXYHEMOGLOBIN 73.8 % (94.0-97.0); BG PCO2 25.2 mmHg (35.0-45.0); BG PH 7.525 (7.350-7.450); BG SAMPLE SITE RIGHT BRACHIAL; BG TOTAL HEMOGLOBIN 11.5 g/dL (12.0-18.0); BG VENT MODE NASAL CANNULA
[2017-06-10 09:00] VITALS: BP 127/70
[2017-06-10] MEDS: PREDNISONE 20MG TABLET PO SCH (09:07)
[2017-06-11 13:07] LABS: 25-HYDROXY VITAMIN D3 34 ng/mL (.)
== END 2017-06-10 09:24 | disposition short-term general hospital (02) | DRG 190 ==
PROVIDERS: ADMIT Physical Medicine & Rehabilitation Spinal Cord Injury Medicine; ATTEND Family Medicine Adult Medicine
DX: J44.1 Chronic obstructive pulmonary disease with (acute) exacerbation (principal); J96.20 Acute and chronic respiratory failure, unspecified whether with hypoxia or hypercapnia; R64 Cachexia; I50.32 Chronic diastolic (congestive) heart failure; E46 Unspecified protein-calorie malnutrition; J90 Pleural effusion, not elsewhere classified; Z68.1 Body mass index [BMI] 19.9 or less, adult; I47.2 Ventricular tachycardia; D68.9 Coagulation defect, unspecified; N18.9 Chronic kidney disease, unspecified; J84.112 Idiopathic pulmonary fibrosis; I48.0 Paroxysmal atrial fibrillation; E05.90 Thyrotoxicosis, unspecified without thyrotoxic crisis or storm; E03.9 Hypothyroidism, unspecified; D72.829 Elevated white blood cell count, unspecified; D50.9 Iron deficiency anemia, unspecified; R26.89 Other abnormalities of gait and mobility; R53.81 Other malaise; F06.8 Other specified mental disorders due to known physiological condition; N18.3 Chronic kidney disease, stage 3 (moderate); I27.2 Other secondary pulmonary hypertension; F32.9 Major depressive disorder, single episode, unspecified; T45.515A Adverse effect of anticoagulants, initial encounter; I27.81 Cor pulmonale (chronic); E87.5 Hyperkalemia; F06.31 Mood disorder due to known physiological condition with depressive features; Z95.2 Presence of prosthetic heart valve; Z82.3 Family history of stroke; Z87.891 Personal history of nicotine dependence; Z82.49 Family history of ischemic heart disease and other diseases of the circulatory system; Z79.01 Long term (current) use of anticoagulants; Z79.899 Other long term (current) drug therapy; Z88.6 Allergy status to analgesic agent; Z88.8 Allergy status to other drugs, medicaments and biological substances; Y92.89 Other specified places as the place of occurrence of the external cause
CPT/HCPCS: 36415; 36600; 80048; 80053; 80061; 81003; 82306; 82375; 82607; 82728; 82746; 82805; 83036; 83540; 83550; 83735; 84100; 84134; 84443; 84484; 84630; 85025; 85610; 87086; 93005; 93970; 94640; 97110; 97116; 97163; 97167; 97530; 97535; J2405; J7512; J7620

== ENCOUNTER 2017-06-10 09:55 | Inpatient (IN) | payer MEDICARE, MEDICAID ==
[~2017-06-10] VITALS: Ht 165.1 cm; Wt 59.9 kg
[2017-06-10] VITALS (9 sets, daily range): BP systolic 110–131; BP diastolic 57–72
[~2017-06-10 09:55] MED LIST changes: +IOHEXOL-350 100 ML BOTTLE ONE; +SODIUM CHLORIDE 0.9% 10ML VIAL ONE
[2017-06-10] MEDS ORDERED: FUROSEMIDE 40MG/4ML VIAL IVP NR (10:45)
[2017-06-10] MEDS ORDERED: OMEPRAZOLE 20MG CAPSULE EXTENDED RELEASE PO SCH (12:00)
[2017-06-10] MEDS ORDERED: ACETAMINOPHEN 325MG TABLET PO PRN (12:00)
[2017-06-10] MEDS ORDERED: IPRATROPIUM/ALBUTEROL 0.5-3(2.5)MG/3ML NEB INH PRN (12:00)
[2017-06-10] MEDS ORDERED: ONDANSETRON HCL 4MG/2ML VIAL IV PRN ×2 (12:00→12:30)
[2017-06-10 13:39] LABS: HEMATOCRIT 33.4 % (36.0-48.0); HEMOGLOBIN 10.7 g/dL (12.0-16.0); MEAN CORPUSCULAR HEMOGLOBIN 29.6 pg (28.0-32.0); MEAN CORPUSCULAR VOLUME 92.5 fL (81.0-99.0); PLATELET 184 x1000/uL (130-400); RED BLOOD CELL COUNT 3.61 mill/uL (4.2-5.4); RED CELL DISTRIBUTION WIDTH 17.7 % (11.6-14.6)
[2017-06-10] MEDS: AMLODIPINE 5MG TABLET PO SCH (13:45)
[2017-06-10] MEDS: FERROUS SULFATE 325MG TABLET PO SCH ×2 (13:46→18:13)
[2017-06-10] MEDS: SILDENAFIL CITRATE 20MG TABLET PO SCH ×2 (13:46→22:00)
[2017-06-10 14:04] LABS: CREATINE KINASE MB FRACTION 3.2 ng/mL (0.5-3.6); TROPONIN I 0.1 ng/mL (0.00-0.04)
[2017-06-10 15:58] LABS: INR 2.6; PROTHROMBIN TIME 26.8 sec
[2017-06-10] MEDS: TRAMADOL 50MG TABLET PO PRN (17:00)
[2017-06-10] MEDS: LORAZEPAM 1MG TABLET PO PRN (18:13)
[2017-06-10] MEDS ORDERED: IPRATROPIUM/ALBUTEROL 0.5-3(2.5)MG/3ML NEB HHN PRN (18:30)
[2017-06-10] MEDS: ATORVASTATIN CALCIUM 20MG TABLET PO SCH (21:15)
[2017-06-10] MEDS: CARVEDILOL 6.25 MG TABLET PO SCH (21:15)
[2017-06-10] MEDS: IPRATROPIUM/ALBUTEROL 0.5-3(2.5)MG/3ML NEB HHN SCH (21:58)
[2017-06-11] VITALS (12 sets, daily range): BP systolic 92–125; BP diastolic 44–74
[2017-06-11] MEDS: IPRATROPIUM/ALBUTEROL 0.5-3(2.5)MG/3ML NEB HHN SCH ×6 (01:37→20:29)
[2017-06-11] MEDS: SILDENAFIL CITRATE 20MG TABLET PO SCH ×3 (06:00→22:00)
[2017-06-11 06:29] LABS: INR 2.5; PROTHROMBIN TIME 25.5 sec
[2017-06-11 06:40] LABS: BASOPHILS % 0.1 % (0.0-2.0); EOSINOPHILS % 0.9 % (0.0-5.0); HEMATOCRIT. 28.6 % (36.0-48.0); HEMOGLOBIN. 9.3 g/dL (12.0-16.0); LYMPHOCYTES % 13.8 % (20.0-50.0); MEAN CORPUSCULAR HEMOGLOBIN 29.8 pg (28.0-32.0); MEAN CORPUSCULAR VOLUME 91.7 fL (81.0-99.0); MEAN PLATELET VOLUME 7.6 fl (7.4-10.4); MONOCYTES % 3.9 % (2.0-8.0); NEUTROPHILS % 81.3 % (40.0-76.0); PLATELET 143 x1000/uL (130-400); RED BLOOD CELL COUNT 3.11 mill/uL (4.2-5.4); RED CELL DISTRIBUTION WIDTH 17.7 % (11.6-14.6)
[2017-06-11] MEDS: FERROUS SULFATE 325MG TABLET PO SCH ×3 (08:33→18:30)
[2017-06-11] MEDS: FAMOTIDINE 20MG/2ML VIAL IV SCH (08:33)
[2017-06-11] MEDS: PREDNISONE 20MG TABLET PO SCH (08:33)
[2017-06-11] MEDS: METHIMAZOLE 5MG TABLET PO SCH (08:33)
[2017-06-11] MEDS: AMLODIPINE 5MG TABLET PO SCH (09:00)
[2017-06-11] MEDS: CARVEDILOL 6.25 MG TABLET PO SCH ×2 (09:12→20:24)
[2017-06-11] MEDS ORDERED: FUROSEMIDE 40MG/4ML VIAL IVP SCH (09:15)
[2017-06-11] MEDS: LORAZEPAM 1MG TABLET PO PRN (09:40)
[2017-06-11] MEDS ORDERED: WARFARIN SODIUM 3MG TABLET PO SCH (18:00)
[2017-06-11] MEDS: ZOLPIDEM TARTRATE 5MG TABLET PO PRN (20:24)
[2017-06-11] MEDS: ATORVASTATIN CALCIUM 20MG TABLET PO SCH (20:29)
[2017-06-12] VITALS (12 sets, daily range): BP systolic 100–141; BP diastolic 54–77
[2017-06-12] MEDS: IPRATROPIUM/ALBUTEROL 0.5-3(2.5)MG/3ML NEB HHN SCH ×6 (04:53→20:49)
[2017-06-12] MEDS: SILDENAFIL CITRATE 20MG TABLET PO SCH ×3 (05:30→21:12)
[2017-06-12 07:22] LABS: BASOPHILS % 0.1 % (0.0-2.0); HEMATOCRIT. 28.7 % (36.0-48.0); HEMOGLOBIN. 9.2 g/dL (12.0-16.0); LYMPHOCYTES % 12.4 % (20.0-50.0); MEAN CORPUSCULAR HEMOGLOBIN 29.4 pg (28.0-32.0); MEAN CORPUSCULAR VOLUME 92.1 fL (81.0-99.0); MEAN PLATELET VOLUME 7.6 fl (7.4-10.4); MONOCYTES % 3.2 % (2.0-8.0); NEUTROPHILS % 83.3 % (40.0-76.0); PLATELET 142 x1000/uL (130-400); RED BLOOD CELL COUNT 3.12 mill/uL (4.2-5.4); RED CELL DISTRIBUTION WIDTH 17.9 % (11.6-14.6)
[2017-06-12 07:23] LABS: INR 2.2; PROTHROMBIN TIME 22.6 sec
[2017-06-12 07:23] LABS: BG BASE EXCESS -1.1 mmol/L (-2.0-2.0); BG CARBOXYHEMOGLOBIN 0.5 % (0.5-1.5); BG DEOXYHEMOGLOBIN 6.8 % (0.0-5.0); BG HCO3 ACT 21.3 mmol/L (22.0-26.0); BG METHEMOGLOBIN 0.4 % (0.0-1.5); BG OXYGEN SATURATION 93.1 % (92.0-98.5); BG OXYHEMOGLOBIN 92.3 % (94.0-97.0); BG PCO2 28.1 mmHg (35.0-45.0); BG PH 7.498 (7.350-7.450); BG PO2 68.1 mmHg (75.0-100.0); BG SAMPLE SITE RIGHT RADIAL; BG TOTAL HEMOGLOBIN 10.6 g/dL (12.0-18.0); BG VENT MODE VAPOTHERM
[2017-06-12] MEDS: FERROUS SULFATE 325MG TABLET PO SCH ×4 (07:59→17:30)
[2017-06-12] MEDS: PREDNISONE 20MG TABLET PO SCH ×2 (08:00→09:28)
[2017-06-12] MEDS: METHIMAZOLE 5MG TABLET PO SCH ×2 (08:00→09:28)
[2017-06-12] MEDS: FAMOTIDINE 20MG/2ML VIAL IV SCH ×2 (08:00→09:18)
[2017-06-12] MEDS: AMLODIPINE 5MG TABLET PO SCH ×2 (08:01→09:28)
[2017-06-12] MEDS: CARVEDILOL 6.25 MG TABLET PO SCH ×3 (08:02→21:10)
[2017-06-12] MEDS: LORAZEPAM 1MG TABLET PO PRN (10:06)
[2017-06-12] MEDS ORDERED: POTASSIUM CHLORIDE 20MEQ/PACKET PO SCH (10:30)
[2017-06-12] MEDS: LORAZEPAM 2MG/ML CPJ IV PRN ×2 (15:30→20:05)
[2017-06-12] MEDS: HYDROCODONE/ACETAMINOPHEN 5/325MG TABLET PO PRN (17:32)
[2017-06-12] MEDS ORDERED: WARFARIN SODIUM 3MG TABLET PO SCH (18:00)
[2017-06-12] MEDS: ZOLPIDEM TARTRATE 5MG TABLET PO PRN (20:05)
[2017-06-12] MEDS: ATORVASTATIN CALCIUM 20MG TABLET PO SCH (21:09)
[2017-06-13] VITALS (13 sets, daily range): BP systolic 103–150; BP diastolic 56–78
[2017-06-13] MEDS: IPRATROPIUM/ALBUTEROL 0.5-3(2.5)MG/3ML NEB HHN SCH ×6 (00:35→20:34)
[2017-06-13] MEDS: HYDROCODONE/ACETAMINOPHEN 5/325MG TABLET PO PRN (02:30)
[2017-06-13] MEDS: LORAZEPAM 2MG/ML CPJ IV PRN ×4 (02:37→21:12)
[2017-06-13 03:39] LABS: BG BASE EXCESS -1.2 mmol/L (-2.0-2.0); BG CARBOXYHEMOGLOBIN 0.4 % (0.5-1.5); BG DEOXYHEMOGLOBIN 9.8 % (0.0-5.0); BG FRACTION INSPIRED OXYGEN 100; BG HCO3 ACT 21.6 mmol/L (22.0-26.0); BG METHEMOGLOBIN 0.4 % (0.0-1.5); BG OXYGEN SATURATION 90.1 % (92.0-98.5); BG OXYHEMOGLOBIN 89.4 % (94.0-97.0); BG PCO2 29.2 mmHg (35.0-45.0); BG PH 7.486 (7.350-7.450); BG PO2 58.5 mmHg (75.0-100.0); BG SAMPLE SITE LEFT RADIAL; BG TOTAL HEMOGLOBIN 9.5 g/dL (12.0-18.0); BG VENT MODE VAPOTHERM
[2017-06-13] MEDS: SILDENAFIL CITRATE 20MG TABLET PO SCH ×3 (05:33→21:08)
[2017-06-13 06:42] LABS: INR 2.7; PROTHROMBIN TIME 28.5 sec
[2017-06-13 06:56] LABS: BASOPHILS % 0.1 % (0.0-2.0); EOSINOPHILS % 0.6 % (0.0-5.0); HEMATOCRIT. 27.3 % (36.0-48.0); HEMOGLOBIN. 8.7 g/dL (12.0-16.0); MEAN CORPUSCULAR HEMOGLOBIN 29.9 pg (28.0-32.0); MEAN CORPUSCULAR VOLUME 93.6 fL (81.0-99.0); MEAN PLATELET VOLUME 7.4 fl (7.4-10.4); MONOCYTES % 3.4 % (2.0-8.0); NEUTROPHILS % 85.9 % (40.0-76.0); PLATELET 117 x1000/uL (130-400); RED BLOOD CELL COUNT 2.92 mill/uL (4.2-5.4)
[2017-06-13 07:44] LABS: CARBON DIOXIDE 23 mEq/L (21-32); CHLORIDE 105 mEq/L (98-107)
[2017-06-13] MEDS: FAMOTIDINE 20MG/2ML VIAL IV SCH (08:27)
[2017-06-13] MEDS: METHIMAZOLE 5MG TABLET PO SCH (08:27)
[2017-06-13] MEDS: PREDNISONE 20MG TABLET PO SCH (08:27)
[2017-06-13] MEDS: CARVEDILOL 6.25 MG TABLET PO SCH ×2 (08:27→21:09)
[2017-06-13] MEDS: AMLODIPINE 5MG TABLET PO SCH (08:27)
[2017-06-13] MEDS: FERROUS SULFATE 325MG TABLET PO SCH ×3 (08:27→17:01)
[2017-06-13] MEDS ORDERED: POTASSIUM CHLORIDE 20MEQ TABLET SR PO NR (15:00)
[2017-06-13] MEDS ORDERED: FUROSEMIDE 40MG/4ML VIAL IVP NR (15:00)
[2017-06-13] MEDS ORDERED: WARFARIN SODIUM 3MG TABLET PO NR (18:00)
[2017-06-13] MEDS: ATORVASTATIN CALCIUM 20MG TABLET PO SCH (21:08)
[2017-06-13] MEDS: ZOLPIDEM TARTRATE 5MG TABLET PO PRN (21:09)
[2017-06-14] VITALS (18 sets, daily range): BP systolic 99–136; BP diastolic 55–80
[2017-06-14] MEDS: HYDROCODONE/ACETAMINOPHEN 5/325MG TABLET PO PRN (02:24)
[2017-06-14] MEDS: IPRATROPIUM/ALBUTEROL 0.5-3(2.5)MG/3ML NEB HHN SCH ×4 (02:34→20:16)
[2017-06-14] MEDS: SILDENAFIL CITRATE 20MG TABLET PO SCH ×3 (06:23→22:24)
[2017-06-14 06:40] LABS: BASOPHILS % 0.2 % (0.0-2.0); EOSINOPHILS % 0.5 % (0.0-5.0); HEMATOCRIT. 28.5 % (36.0-48.0); HEMOGLOBIN. 8.9 g/dL (12.0-16.0); MEAN CORPUSCULAR HEMOGLOBIN 29.4 pg (28.0-32.0); MEAN PLATELET VOLUME 7.7 fl (7.4-10.4); NEUTROPHILS % 85.3 % (40.0-76.0); PLATELET 114 x1000/uL (130-400); RED BLOOD CELL COUNT 3.03 mill/uL (4.2-5.4); RED CELL DISTRIBUTION WIDTH 18.8 % (11.6-14.6)
[2017-06-14 06:50] LABS: INR 2.6; PROTHROMBIN TIME 27.2 sec
[2017-06-14] MEDS ORDERED: LIDOCAINE HCL/PF 1% 2ML VIAL ONE (08:00)
[2017-06-14] MEDS: DOCUSATE SODIUM 100MG CAPSULE PO PRN ×2 (08:58→18:30)
[2017-06-14] MEDS: PREDNISONE 20MG TABLET PO SCH (08:58)
[2017-06-14] MEDS: FAMOTIDINE 20MG/2ML VIAL IV SCH (08:58)
[2017-06-14] MEDS: FERROUS SULFATE 325MG TABLET PO SCH ×3 (08:58→18:30)
[2017-06-14] MEDS: AMLODIPINE 5MG TABLET PO SCH (09:02)
[2017-06-14] MEDS: METHIMAZOLE 5MG TABLET PO SCH (09:03)
[2017-06-14] MEDS: CARVEDILOL 6.25 MG TABLET PO SCH ×2 (09:03→22:25)
[2017-06-14 13:30] LABS: BG BASE EXCESS -1.7 mmol/L (-2.0-2.0); BG CARBOXYHEMOGLOBIN 0.8 % (0.5-1.5); BG DEOXYHEMOGLOBIN 9.2 % (0.0-5.0); BG HCO3 ACT 20.7 mmol/L (22.0-26.0); BG METHEMOGLOBIN 0.3 % (0.0-1.5); BG OXYGEN SATURATION 90.7 % (92.0-98.5); BG OXYHEMOGLOBIN 89.7 % (94.0-97.0); BG PCO2 27.7 mmHg (35.0-45.0); BG PH 7.492 (7.350-7.450); BG PO2 58.2 mmHg (75.0-100.0); BG SAMPLE SITE RIGHT RADIAL; BG TOTAL HEMOGLOBIN 10.5 g/dL (12.0-18.0); BG VENT MODE NASAL CANNULA
[2017-06-14] MEDS: LORAZEPAM 1MG TABLET PO PRN (14:41)
[2017-06-14] MEDS ORDERED: WARFARIN SODIUM 3MG TABLET PO NR (18:00)
[2017-06-14] MEDS: ATORVASTATIN CALCIUM 20MG TABLET PO SCH (22:23)
[2017-06-15] VITALS (14 sets, daily range): BP systolic 107–135; BP diastolic 50–84
[2017-06-15] MEDS: IPRATROPIUM/ALBUTEROL 0.5-3(2.5)MG/3ML NEB HHN SCH ×4 (01:51→21:16)
[2017-06-15] MEDS: SILDENAFIL CITRATE 20MG TABLET PO SCH ×3 (05:02→22:13)
[2017-06-15 06:34] LABS: INR 2.6
[2017-06-15 06:45] LABS: BASOPHILS % 0.3 % (0.0-2.0); EOSINOPHILS % 0.5 % (0.0-5.0); HEMATOCRIT. 27.9 % (36.0-48.0); HEMOGLOBIN. 8.9 g/dL (12.0-16.0); LYMPHOCYTES % 12.9 % (20.0-50.0); MEAN CORPUSCULAR HEMOGLOBIN 29.8 pg (28.0-32.0); MEAN CORPUSCULAR VOLUME 93.2 fL (81.0-99.0); MEAN PLATELET VOLUME 7.5 fl (7.4-10.4); MONOCYTES % 2.7 % (2.0-8.0); NEUTROPHILS % 83.6 % (40.0-76.0); PLATELET 108 x1000/uL (130-400); RED CELL DISTRIBUTION WIDTH 18.7 % (11.6-14.6)
[2017-06-15] MEDS: FERROUS SULFATE 325MG TABLET PO SCH ×3 (08:54→18:12)
[2017-06-15] MEDS: PREDNISONE 20MG TABLET PO SCH (08:54)
[2017-06-15] MEDS: METHIMAZOLE 5MG TABLET PO SCH (08:54)
[2017-06-15] MEDS: AMLODIPINE 5MG TABLET PO SCH (08:55)
[2017-06-15] MEDS: CARVEDILOL 6.25 MG TABLET PO SCH ×2 (08:55→20:54)
[2017-06-15] MEDS: FAMOTIDINE 20MG/2ML VIAL IV SCH (09:02)
[2017-06-15 10:07] LABS: IMMUNOGLOBULIN A 134 mg/dL (87-352); IMMUNOGLOBULIN G 1082 mg/dL (700-1600); IMMUNOGLOBULIN M 156 mg/dL (26-217)
[2017-06-15 11:27] LABS: BG BASE EXCESS -1.3 mmol/L (-2.0-2.0); BG CARBOXYHEMOGLOBIN 0.2 % (0.5-1.5); BG DEOXYHEMOGLOBIN 5.6 % (0.0-5.0); BG FRACTION INSPIRED OXYGEN 85; BG HCO3 ACT 21.5 mmol/L (22.0-26.0); BG METHEMOGLOBIN 0.3 % (0.0-1.5); BG OXYGEN SATURATION 94.4 % (92.0-98.5); BG OXYHEMOGLOBIN 93.9 % (94.0-97.0); BG PCO2 29.2 mmHg (35.0-45.0); BG PH 7.484 (7.350-7.450); BG PO2 75.8 mmHg (75.0-100.0); BG SAMPLE SITE RIGHT BRACHIAL; BG TOTAL HEMOGLOBIN 10.1 g/dL (12.0-18.0); BG VENT MODE VAPOTHERM
[2017-06-15] MEDS: TRAMADOL 50MG TABLET PO PRN (12:12)
[2017-06-15 13:07] LABS: ANTI-THROMBIN ACTIVITY 153 % (75-135); PROTEIN C FUNCTIONAL 76 % (73-180)
[2017-06-15] MEDS ORDERED: WARFARIN SODIUM 3MG TABLET PO SCH (18:00)
[2017-06-15] MEDS: ATORVASTATIN CALCIUM 20MG TABLET PO SCH (20:53)
[2017-06-15] MEDS: ZOLPIDEM TARTRATE 5MG TABLET PO PRN (20:54)
[2017-06-15] MEDS: LORAZEPAM 2MG/ML CPJ IV PRN (22:18)
[2017-06-16] VITALS (10 sets, daily range): BP systolic 107–125; BP diastolic 28–92
[2017-06-16] MEDS: IPRATROPIUM/ALBUTEROL 0.5-3(2.5)MG/3ML NEB HHN SCH ×3 (00:57→14:46)
[2017-06-16] MEDS ORDERED: HYDROCODONE/ACETAMINOPHEN 5/325MG TABLET PO PRN (03:00)
[2017-06-16 05:38] LABS: INR 2.7; PROTHROMBIN TIME 28.7 sec
[2017-06-16] MEDS: SILDENAFIL CITRATE 20MG TABLET PO SCH ×2 (06:13→13:27)
[2017-06-16 07:16] LABS: BASOPHILS % 0.3 % (0.0-2.0); EOSINOPHILS % 0.4 % (0.0-5.0); HEMATOCRIT. 28.1 % (36.0-48.0); HEMOGLOBIN. 8.9 g/dL (12.0-16.0); LYMPHOCYTES % 12.1 % (20.0-50.0); MEAN CORPUSCULAR HEMOGLOBIN 30.1 pg (28.0-32.0); MEAN CORPUSCULAR VOLUME 94.9 fL (81.0-99.0); MEAN PLATELET VOLUME 7.8 fl (7.4-10.4); MONOCYTES % 2.5 % (2.0-8.0); NEUTROPHILS % 84.7 % (40.0-76.0); PLATELET 107 x1000/uL (130-400); RED BLOOD CELL COUNT 2.96 mill/uL (4.2-5.4); RED CELL DISTRIBUTION WIDTH 19.2 % (11.6-14.6)
[2017-06-16] MEDS: AMLODIPINE 5MG TABLET PO SCH (09:10)
[2017-06-16] MEDS: METHIMAZOLE 5MG TABLET PO SCH (09:10)
[2017-06-16] MEDS: FAMOTIDINE 20MG/2ML VIAL IV SCH (09:10)
[2017-06-16] MEDS: FERROUS SULFATE 325MG TABLET PO SCH ×3 (09:11→18:09)
[2017-06-16] MEDS: CARVEDILOL 6.25 MG TABLET PO SCH (09:11)
[2017-06-16] MEDS: PREDNISONE 20MG TABLET PO SCH (09:11)
[2017-06-16] MEDS ORDERED: WARFARIN SODIUM 3MG TABLET PO SCH (18:00)
== END 2017-06-16 19:13 | DRG 175 ==
LOC: UNDOADMIN 09:55 → 5EST 09:55 → UNDOADMIN 10:10
PROVIDERS: ADMIT Family Medicine Adult Medicine; ATTEND Family Medicine Adult Medicine
DX: I26.09 Other pulmonary embolism with acute cor pulmonale (principal); J18.9 Pneumonia, unspecified organism; J96.21 Acute and chronic respiratory failure with hypoxia; E46 Unspecified protein-calorie malnutrition; J44.0 Chronic obstructive pulmonary disease with (acute) lower respiratory infection; D68.59 Other primary thrombophilia; I13.0 Hypertensive heart and chronic kidney disease with heart failure and stage 1 through stage 4 chronic kidney disease, or unspecified chronic kidney disease; I47.2 Ventricular tachycardia; J44.1 Chronic obstructive pulmonary disease with (acute) exacerbation; R64 Cachexia; I50.30 Unspecified diastolic (congestive) heart failure; N18.9 Chronic kidney disease, unspecified; D50.9 Iron deficiency anemia, unspecified; T38.0X5A Adverse effect of glucocorticoids and synthetic analogues, initial encounter; E03.9 Hypothyroidism, unspecified; E05.90 Thyrotoxicosis, unspecified without thyrotoxic crisis or storm; R26.9 Unspecified abnormalities of gait and mobility; D63.8 Anemia in other chronic diseases classified elsewhere; E79.0 Hyperuricemia without signs of inflammatory arthritis and tophaceous disease; E87.6 Hypokalemia; F17.210 Nicotine dependence, cigarettes, uncomplicated; I27.2 Other secondary pulmonary hypertension; I48.0 Paroxysmal atrial fibrillation; I49.3 Ventricular premature depolarization; Z79.01 Long term (current) use of anticoagulants; Z82.3 Family history of stroke; Z82.49 Family history of ischemic heart disease and other diseases of the circulatory system; Z88.5 Allergy status to narcotic agent; Z90.49 Acquired absence of other specified parts of digestive tract; Z99.81 Dependence on supplemental oxygen; Z95.2 Presence of prosthetic heart valve; Z98.41 Cataract extraction status, right eye; Z68.22 Body mass index [BMI] 22.0-22.9, adult
CPT/HCPCS: 36415; 36600; 71010; 71275; 80048; 80076; 81403; 81407; 81479; 82375; 82550; 82553; 82784; 82805; 82962; 83036; 83735; 83880; 84484; 85025; 85027; 85300; 85303; 85306; 85610; 86334; 93005; 93306; 94640; 94660; 94664; 97110; 97163; 97530; 97535; A4216; J1940; J2060; J2405; J3490; J7040; J7512; J7620; Q9967